=== PATIENT | female | born 2000 | race Asian ===

== ENCOUNTER 2020-07-08 22:16 | Emergency (ER) | payer OTHER ==
[~2020-07-08] VITALS: Ht 152.4 cm; Wt 46.0 kg
[2020-07-08 22:24] VITALS: Ht 152.4 cm; Wt 46.0 kg
[2020-07-08 23:24] VITALS: BP 111/76
== END 2020-07-08 23:24 | disposition home or self-care (01) ==
LOC: ED 22:16
DX: F41.9 Anxiety disorder, unspecified (principal); Z88.0 Allergy status to penicillin